=== PATIENT | male | born 1970 | race Caucasian/White ===

== ENCOUNTER → 2016-05-07 | Outpatient (REF) | payer BC ==
[2016-05-07 10:29] LABS: ALBUMIN 4.2 g/dL (3.4-5.0); ANION GAP 15.9 MEQ/L (3-15); TOTAL PROTEIN 7.4 g/dL (6.4-8.5)
[2016-05-07 10:41] LABS: BASOPHILS % (AUTO) 0 % (0-2); EOSINOPHILS # (AUTO) 0.2 10^3uL; EOSINOPHILS % (AUTO) 2 % (0-4); LYMPHOCYTES # (AUTO) 1.5 X10^3; MEAN CORPUSCULAR VOLUME 91 FL (80-100); MEAN PLATELET VOLUME 10.5 FL (6.0-9.5); MONOCYTES # (AUTO) 0.9 X10^3; MONOCYTES % (AUTO) 12 % (3-11); NEUTROPHILS % (AUTO) 66 % (51-67); PLATELET COUNT 249 10^3uL (150-450); WHITE BLOOD COUNT 7.52 10^3uL (4.0-11.0)
[2016-05-07 10:43] LABS: MEAN CORPUSCULAR HEMOGLOBIN 33.7 PG (26.0-34.0); MEAN CORPUSCULAR HGB CONC 37.1 g/dL (31.0-37.0)
== END ==
LOC: LAB 10:01
PROVIDERS: ATTEND Nurse Practitioner Family
DX: Z01.818 Encounter for other preprocedural examination (principal)
CPT/HCPCS: 80053; 85025

== ENCOUNTER 2016-08-14 16:00 | Outpatient (RCR) | payer BC ==
--- NOTE | 2016-07-05 13:56 | PT/OT/ST INITIAL EVALUATION ---
Department of Health and Human Services Form Approved [facility] Care Financing Administration OMB No. [id number] PLAN OF CARE/ASSESSMENT FOR OUTPATIENT REHABILITATION (Complete for Initial Claims Only) 1. PATIENT'S NAME Samuel Guzman 2. ACC # [id number] 3. [facility] [id number] 4. PROVIDER NO. [id number] 5. TYPE: PT 6. PRIOR HOSPITALIZATION None 7. PRIMARY DX Status post cervical disk fusion. 8. SECONDARY DX Limited mobility and strength at neck and shoulders. 9. ONSET DATE 05/17/2016 10. REFERRAL DATE 06/14/2016 11. SOC. DATE 07/03/2016 12. TIME OF EVAL 13:00 12. REFERRING PHYSICIAN NISH Monreal 13. CHARGES/UNITS Eval, manual therapy and [facility] 14. G CODES NA 15. PRIOR LEVEL OF FUNCTION; PERTINENT HISTORY (Prior therapy results, reason for referral.) S: Reason for referral: The patient was referred to physical therapy by NISH Monreal with Dr. Huitron with [facility]. The patient had undergone a cervical fusion on 05/17/2016. Mechanism of injury: He reports that he had 4 bulging disks in his neck and had been experiencing radicular symptoms into the left side of his neck and into his left shoulder and arm for some time. The patient reports that since surgery he is no longer having constant pain at his neck and his left arm is no longer going numb. The patient is still having some pain at night at his lower cervical region and feels increased tightness through his neck and shoulders. The patient works at [employer] and they have been accommodating his work restrictions. The patient reports that his neck was fused and cadaver bone was used. The patient's restrictions include no overhead activity and he is limited to a 5-pound weight restriction. Pain level: Current pain rating is 7/10. Past medical history: Includes thyroid problems, depression, and neck surgery. Current medications: The patient is taking Percocet at night. Patient's Goal: The patient's goal fort therapy is to be able to move his neck better. 16. INITIAL ASSESSMENT/SAFETY PRECAUTIONS/MEDICAL COMPLICATIONS (Level of function at start of care. Be specific, use objective measures, list problems.) O: APPEARANCE AND OBSERVATION: The patient is a 46-year-old male. He presents to physical therapy. He demonstrates a forward head posture and rounded shoulders. The incision is noted at his anterior neck region. PALPATION: The patient has tenderness to palpation through his left upper trap levator scapular muscle belly region; also tenderness is noted at C6-C7 region. No tenderness noted at his posterior lateral shoulder region. No numbness or tingling is reported at his hands. RANGE OF MOTION/FLEXIBILITY: Cervical range of motion-flexion 22 degrees, extension 28 degrees, right rotation 22 degrees, and left rotation 40 degrees. Shoulder range of motion -flexion 130 degrees on the right and 140 degrees on the left. Abduction normal limits bilaterally. STRENGTH: Shoulder strength was 4+/5 manual muscle test with flexion and abduction. All other motions were 5/5 manual muscle test. [facility] strength-right 107 pounds, left 100 pounds. Pinch strength -right 25 pounds, left 21 pounds. TODAY'S TREATMENT: Treatment included initial evaluation followed by instruction of home exercise program emphasizing the importance of overall posture with patient when performing activities and to follow current restrictions. 17. INITIAL POC: (Specify procedures, modalities, short and watermelon inspector goals) A: The patient is status post cervical fusion at four levels. PROGNOSIS: The patient will benefit from physical therapy to help promote posture, range of motion, flexibility and strength. SHORT TERM GOALS: 1. The patient to be compliant with home exercise program in 2 weeks. 2. The patient to demonstrate more appropriate posture without verbal cueing in 3 weeks. 3. The patient to increase cervical rotation by 15 degrees bilaterally in 4 weeks. 4. The patient to demonstrate full shoulder strength without pain in 6 weeks. 5. The patient to return to normal daily activities and duties at work without restriction in 8 weeks. P: The patient will be seen 2 times a week over the next 6 weeks. Plan on progressing the patient with range of motion, flexibility, stabilization, and light strengthening activities as tolerated. Modalities and manual therapy will be used as necessary to decrease any type of pain or inflammation. 18. FREQUENCY 2 times per week 19. DURATION 6 weeks 20. FUNCTIONAL LEVEL (End of claim period) 21. PHYSICIAN SIGNATURE ? ON FILE OR ENTER HERE: 22. DATE: I certify the need for these services furnished under this plan of care and if for partial hospitalization. 23. CERTIFICATION FROM THROUGH FORM [id number]
[~2016-08-14 16:00] MED LIST: IBP800T PO; LEVO100T7 PO; LEVO75TA4 PO; LEVO88TA4 PO; LVT.05T PO
== END 2016-08-19 10:14 | disposition home or self-care (01) ==
LOC: PT 16:00
PROVIDERS: ATTEND Physician Assistant
DX: Z98.890 Other specified postprocedural states (principal); M25.612 Stiffness of left shoulder, not elsewhere classified; M25.611 Stiffness of right shoulder, not elsewhere classified; M53.82 Other specified dorsopathies, cervical region

== ENCOUNTER → 2016-08-15 | Outpatient (CLI) | payer BC ==
--- NOTE | 2016-08-15 18:46 | Diagnostic Imaging Report ---
INDICATION: Postoperative fusion 3 months prior. TECHNIQUE: AP, lateral , swimmer's and odontoid views cervical spine.. CORRELATION STUDY: None FINDINGS: There are postop changes of an anterior cervical decompression and fusion with plate and screws at C4-C5 and C6-C7 levels. Intervertebral disc spacer device also noted at the respective disc levels. The fused segments demonstrate relatively normal alignment. Nonfused segments demonstrate trace retrolisthesis of C3 on C4 and trace anterolisthesis C2 on C3. There is moderate to marked disc space narrowing at C3-C4 level. Asymmetric hypertrophic facet arthropathy is present. The odontoid appearing unremarkable. Prevertebral soft tissues unremarkable. IMPRESSION: 1. Postop changes of an anterior cervical decompression fusion C4-C7 appearing to be in anatomic alignment. Marked disc space narrowing at C3-C4 level just above the area fused. Dictated on workstation # [id number]
== END ==
LOC: RAD 16:08
PROVIDERS: ATTEND Neurological Surgery
DX: Z98.890 Other specified postprocedural states (principal)
CPT/HCPCS: 72040